=== PATIENT | male | born 1980 | race African-American/Black ===

== ENCOUNTER 2016-09-29 16:36 | Emergency (ER) | payer BC, OTHER ==
[~2016-09-29] VITALS: Ht 175.3 cm; Wt 100.7 kg
[2016-09-29 17:49] LABS: ABSOLUTE NEUTROPHILS 5.3 thou/uL (1.4-8.2); BASOPHILS 0.4 % (0.0-2.0); EOSINOPHILS 2.5 % (0.0-3.0); HEMATOCRIT 44.8 % (42.0-52.0); HEMOGLOBIN 15.8 gm/dL (14.0-18.0); LYMPHOCYTES 32.6 % (24.0-44.0); MCH 30.4 pg (26.0-34.0); MCHC 35.2 g/dL (28.0-37.0); MCV 86.3 fL (80.0-100.0); MONOCYTES 8.7 % (1.0-8.0); PLATELET COUNT 253 thou/uL (150-400); POLYS 55.8 % (36.0-66.0); RBC 5.19 mil/uL (4.50-6.00); RDW 14.6 % (10.5-14.5); WBC 9.5 thou/uL (4.0-11.0)
[2016-09-29 17:50] LABS: MANUAL DIFF NO
[2016-09-29 19:03] LABS: URINE BILIRUBIN NEGATIVE (Negative); URINE BLOOD NEGATIVE (Negative); URINE COLOR YELLOW; URINE GLUCOSE-RANDOM* NEGATIVE (Negative); URINE KETONES NEGATIVE (Negative); URINE NITRITE NEGATIVE (Negative); URINE PROTEIN (DIPSTICK) NEGATIVE (Negative); URINE UROBILINOGEN 0.2 E.U./dl (0.2-1.0)
[2016-09-29 19:35] LABS: ALBUMIN 3.8 g/dL (3.4-5.0); CALCIUM 9.1 mg/dL (8.5-10.1); CREATININE 0.9 mg/dL (0.7-1.3); POTASSIUM 3.7 mmol/L (3.5-5.1); TOTAL BILIRUBIN 0.4 mg/dL (<0.1-1.0)
[2016-09-29] MEDS ORDERED: HYDROCODONE-AP1 EAC6 PO (22:33)
[2016-09-29 22:36] VITALS: BP 126/75
== END 2016-09-29 22:44 | disposition home or self-care (01) ==
LOC: ER 16:36
PROVIDERS: Physician Assistant
DX: K57.90 Diverticulosis of intestine, part unspecified, without perforation or abscess without bleeding (principal); F17.210 Nicotine dependence, cigarettes, uncomplicated; F12.10 Cannabis abuse, uncomplicated

== ENCOUNTER 2016-12-23 13:15 | Emergency (ER) | payer BC, OTHER ==
[~2016-12-23] VITALS: Ht 175.3 cm; Wt 99.8 kg
--- NOTE | ~2016-12-23 | EKG ---
[facility] [place] [address] ELECTROCARDIOGRAM REPORT Name: ELENA FELIXDIE Room #: [facility] Arango#: [id number] Admission: 12/23/16 Attend Phys: Discharge: 12/23/16 Date of : 80 Report #: [id number] THIS REPORT FOR: //name// [facility] ED Test Date: 2016-12-23 Test Time: 13:26:26 Pat Name: BRITTANI FELIX Department: Room: Gender: Medical Coding Auditor: : 1980 Requested By: Brice Landrum Order Number: [id number] MD: Juan Stevens Measurements Intervals [place] Rate: 83 P: -5 IN: 158 QRS: -2 QRSD: 75 T: -12 QT: 330 QTc: 388 Interpretive Statements Sinus rhythm Anteroseptal infarct, age indeterminate Borderline T abnormalities, inferior leads No previous ECG available for comparison Electronically Signed On 12-23-2016 18:15:26 CDT by Juan Stevens [email or web address] <ELECTRONICALLY SIGNED> By: Juan Stevens MD, [facility] 12/23/16 1815 1326 [id number] Juan Stevens MD, FACC /EPI
[~2016-12-23 13:15] MED LIST: ALLEGRA ALLERG180 MG PO; HYDROCODONE-AP1 EAC6 PO; PEPCID20 MG PO; PREDNISONE 20 M20 MG PO
[2016-12-23 14:15] LABS: ABSOLUTE NEUTROPHILS 7.3 thou/uL (1.4-8.2); BASOPHILS 0.7 % (0.0-2.0); EOSINOPHILS 1.7 % (0.0-3.0); HEMOGLOBIN 14.6 gm/dL (14.0-18.0); LYMPHOCYTES 24.6 % (24.0-44.0); MCH 30.2 pg (26.0-34.0); MCV 88.8 fL (80.0-100.0); MONOCYTES 6.9 % (1.0-8.0); PLATELET COUNT 220 thou/uL (150-400); POLYS 66.1 % (36.0-66.0); RBC 4.84 mil/uL (4.50-6.00); RDW 14.6 % (10.5-14.5)
[2016-12-23 14:16] LABS: MANUAL DIFF NO
[2016-12-23 14:23] LABS: ANION GAP 8 mmol/L (7-16); BUN 13 mg/dL (7-18); CHLORIDE 106 mmol/L (98-107); CO2 26 mmol/L (21-32); GLUCOSE 104 mg/dL (74-106); POTASSIUM 3.8 mmol/L (3.5-5.1); SODIUM 140 mmol/L (136-145)
[2016-12-23 14:27] LABS: APTT 28.3 Seconds (24.5-32.8); PROTIME 10.3 Seconds (9.3-11.4)
[2016-12-23 14:48] LABS: ALBUMIN 3.9 g/dL (3.4-5.0); ALKALINE PHOSPHATASE 55 U/L (46-116); CK-MB MASS 1.3 ng/mL (<0.5-3.6); NT-PRO BRAIN NAT PEPTIDE 10 pg/mL (<300); SGOT 30 U/L (15-37); SGPT 53 U/L (30-65); TOTAL BILIRUBIN 0.3 mg/dL (<0.1-1.0); TOTAL PROTEIN 7.3 g/dL (6.4-8.2); TROPONIN-I < 0.04 ng/mL (<0.04-0.07)
[2016-12-23] MEDS ORDERED: NAPROSYN500 MG PO (14:52)
[2016-12-23] MEDS ORDERED: ROBAXIN500 MG PO (14:52)
[2016-12-23] MEDS ORDERED: TRAMADOL 50 MG50 MG PO (14:52)
[2016-12-23] MEDS ORDERED: ACTICIN 5% CREA60 G1 TOP (14:58)
[2016-12-23 15:25] VITALS: BP 129/82
== END 2016-12-23 15:26 | disposition home or self-care (01) ==
LOC: ER 13:15
PROVIDERS: Emergency Medicine
DX: M43.6 Torticollis (principal); B86 Scabies; E66.9 Obesity, unspecified; F17.210 Nicotine dependence, cigarettes, uncomplicated; F12.10 Cannabis abuse, uncomplicated; Z91.041 Radiographic dye allergy status

== ENCOUNTER 2017-01-22 07:04 | Emergency (ER) | payer BC, OTHER ==
[~2017-01-22] VITALS: Ht 172.7 cm; Wt 101.2 kg
[~2017-01-22 07:04] MED LIST changes: +ACTICIN 5% CREA60 G1 TOP; +NAPROSYN500 MG PO; +ROBAXIN500 MG PO; +TRAMADOL 50 MG50 MG PO
[2017-01-22 07:15] VITALS: BP 144/82
[2017-01-22] MEDS ORDERED: HYDROXYZINE HCL25 M2 PO (07:38)
[2017-01-22] MEDS ORDERED: PREDNISONE 20 M20 MG PO (07:38)
== END 2017-01-22 08:02 | disposition home or self-care (01) ==
LOC: ER 07:04
DX: L29.9 Pruritus, unspecified (principal); F17.210 Nicotine dependence, cigarettes, uncomplicated

== ENCOUNTER 2017-02-25 13:03 | Emergency (ER) | payer OTHER ==
[~2017-02-25] VITALS: Ht 175.3 cm; Wt 94.3 kg
--- NOTE | ~2017-02-25 | EKG ---
[facility] [place] [address] ELECTROCARDIOGRAM REPORT Name: ELENA FELIXDIE Room #: [facility] Arango#: [id number] Admission: 02/25/17 Attend Phys: Discharge: 02/25/17 Date of : 80 Report #: [id number] THIS REPORT FOR: //name// [facility] ED Test Date: 2017-02-25 Test Time: 14:06:12 Pat Name: BRITTANI FELIX Department: Room: Gender: Oracle Manager: Devika JAIME : 1980 Requested By: Abdirahman Ruvalcaba Order Number: [id number] MD: Juan Stevens Measurements Intervals [place] Rate: 79 P: 13 KS: 162 QRS: 5 QRSD: 80 T: -16 QT: 345 QTc: 396 Interpretive Statements Sinus rhythm Borderline T abnormalities, inferior leads 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
[~2017-02-25 13:03] MED LIST changes: +HYDROXYZINE HCL25 M2 PO
[2017-02-25 14:31] VITALS: BP 138/78
== END 2017-02-25 14:33 | disposition home or self-care (01) ==
LOC: ER 13:03
DX: R07.89 Other chest pain (principal); R05 Cough; F17.210 Nicotine dependence, cigarettes, uncomplicated; F12.10 Cannabis abuse, uncomplicated; Z91.041 Radiographic dye allergy status